=== PATIENT | female | born 1985 | race African-American/Black ===

== ENCOUNTER 2018-10-22 04:33 | Emergency (ER) | payer SELFPAY ==
[~2018-10-22] VITALS: Ht 157.5 cm; Wt 68.9 kg
[2018-10-22 06:12] VITALS: BP 140/93
[2018-10-22] MEDS ORDERED: ONDANSETRON ODT 4 MG TAB PO ONE (06:15)
[2018-10-22] MEDS ORDERED: diphenhdrAMINE HCL 25 MG CAP PO ONE (06:15)
[2018-10-22] MEDS ORDERED: KETOROLAC TROMETH 60MG/2ML VIAL IM ONE (06:15)
== END 2018-10-22 06:48 | disposition home or self-care (01) ==
LOC: ER 04:33
DX: R51 Headache (principal)
CPT/HCPCS: 81025; 96372; 99283; J1885; Q0162

== ENCOUNTER 2021-04-21 21:48 | Emergency (ER) | payer MEDICAID, OTHER ==
[~2021-04-21] VITALS: Ht 157.5 cm; Wt 68.0 kg
[2021-04-21 22:00] VITALS: BP 169/89
[2021-04-21] MEDS ORDERED: cefTRIAXone SOD 1,000 MG VL IM ONE (23:15)
[2021-04-21] MEDS ORDERED: AZITHROMYCIN 250 MG TAB PO ONE (23:15)
== END 2021-04-21 23:34 | disposition home or self-care (01) ==
LOC: ER 21:51
DX: N76.0 Acute vaginitis (principal); N72 Inflammatory disease of cervix uteri
CPT/HCPCS: 96372; 99283; J0696